=== PATIENT | female | born 1985 | race Caucasian/White ===

== ENCOUNTER 2018-05-01 14:24 | Inpatient (IN) | payer MEDICAID, OTHER ==
[~2018-05-01] VITALS: Ht 162.6 cm; Wt 118.8 kg
[2018-05-01 15:29] VITALS: BP 135/68; PULSE 18; RESP 18; Ht 162.6 cm; Wt 118.8 kg
[2018-05-01] MEDS ORDERED: TERBUTALINE 1 ML ONE (16:25)
--- NOTE | 2018-05-01 17:27 | HP ---
Date/Time of Note Date/Time of Note DATE: 05/01/18 TIME: 17:25 OB - History Hx of Present Free Text/Dictation @16 wks GA with Rupture of membrane : 2 Para: 0 Care: Good Care Obstetrical Complications: None Past Family/Social History * Past Medical, Surgical, Family and Obstetric Histories reviewed from chart. OB Admission Exam Vital Signs Vital Signs Vital Signs Date Temp Pulse Resp B/P (MAP) Pulse Ox O2 O2 Flow FiO2 Time Delivery Rate 05/01/18 97.9 18 18 135/68 Room Air 15:29 (90) Physical Exam Abdomen: WNL Cervical Dilatation: None Effacement: 0% Station: Ballotable Membranes: Ruptured OB Assessment/Plan Other Assessment: PMH Obesity PSH Denies Plan: Induction MIRTHA FREEMAN M.D. May 01, 2018 17:26
[2018-05-01] MEDS ORDERED: IBUPROFEN 600 MG TAB PO PRN (18:30)
[2018-05-01] MEDS ORDERED: LIDOCAINE 1% (MPF) 30 ML INJ INJ PRN (18:30)
[2018-05-01] MEDS ORDERED: METHYLERGONOVINE 0.2 MG INJ IM PRN (18:30)
[2018-05-01] MEDS ORDERED: OXYCODONE/ASPIRIN (4.88/325) TAB PO PRN (18:30)
[2018-05-01] MEDS ORDERED: OXYTOCIN 30 UNITS/LR 500 ML IV PRN (18:30)
[2018-05-01] MEDS ORDERED: BUTORPHANOL 2 MG INJ IV PRN (18:30)
[2018-05-01] MEDS ORDERED: MISOPROSTOL 200 MCG TAB PR PRN (18:30)
[2018-05-01] MEDS ORDERED: CARBOPROST 250 MCG INJ IM PRN (18:30)
[2018-05-01] MEDS ORDERED: OXYTOCIN 30 UNITS/LR 500 ML IV SCH ×2 (18:30)
[2018-05-01] MEDS ORDERED: MISOPROSTOL 50 MCG CAPSULE VAG ONE (18:30)
[2018-05-01] MEDS: LACTATED RINGER'S 1,000 ML IV SCH (18:32)
[2018-05-01] MEDS ORDERED: MISOPROSTOL 200 MCG TAB VAG STA (21:00)
[2018-05-02] MEDS: LACTATED RINGER'S 1,000 ML IV SCH (02:17)
[2018-05-02] MEDS: MISOPROSTOL 200 MCG TAB PO SCH ×2 (05:18→08:00)
--- NOTE | 2018-05-02 07:15 | PD.PPDC ---
SALES PROJECT COORDINATOR Discharge Instruction Condition [id number] Patient Condition: Nytgt2h Good Activity/Restrictions [id number] Activity: Jaurq0z Normal Activity May Shower [id number] Restrictions: Ctqcf5s No Sexual Activity Nothing in the Vagina No [place] No Tampons, douche Follow-up Follow-up with Physician: 2, Week/Weeks Return to clinic for [id number] VP TREASURER Instructions: Fwtmc3o Fever greater than 101 Chills Worsening abdominal pain Excessive Vaginal Bleeding [id number] OB Instructions: Bpeia3p Depression DIMAS HUSSEIN MD May 02, 2018 07:15
--- NOTE | 2018-05-02 07:22 | LDN ---
Date/Time of Note Date/Time of Note DATE: 05/02/18 TIME: 07:16 Delivery Summary after SROM at 16 weeks and only one dose of cytotec 600 mcg per vagina and delivered a non-viable, demise weighing 234 grams, 8.5" long, and with Apgars of 0/0. The placenta delivered intact about 2 hours later. Weeks of Gestation 16w 5d Placenta Delivered: Spontaneously Episiotomy: No Estimated blood loss: 691 Sponge & Needle done & correct: Yes All needle counts correct: Yes Any foreign bodies felt in the: No (vagina) Infant Delivery Information Sex Infant Sex: female Apgars 1 Minute: 0 5 Minute: 0 Suctioning Nose & mouth suctioned at guillermo: No Delee suction performed: No Umbilical Cord Cord presentations: no nuchal cord Cord Blood was obtained: No Mother & Baby Disposition Disposition Mom will be d/c'ed home after an appropriate observation time. DIMAS HUSSEIN MD May 02, 2018 07:22
[2018-05-02 07:59] VITALS: BP 111/65; PULSE 86; RESP 18
[2018-05-02] MEDS ORDERED: OXYTOCIN 30 UNITS/LR 500 ML IV SCH (08:34)
[2018-05-02] MEDS ORDERED: OXYTOCIN 30 UNITS/LR 500 ML IV PRN (09:00)
[2018-05-02] MEDS ORDERED: MISOPROSTOL 200 MCG TAB PR PRN (09:00)
[2018-05-02] MEDS ORDERED: NACL 0.9% 3 ML SYG IV SCH (09:00)
[2018-05-02] MEDS ORDERED: CARBOPROST 250 MCG INJ IM PRN (09:00)
[2018-05-02] MEDS ORDERED: SENNA/DOCUSATE NA (8.6MG/50MG) TAB PO SCH (09:00)
[2018-05-02] MEDS ORDERED: SENNA/DOCUSATE NA (8.6MG/50MG) TAB PO PRN (09:00)
[2018-05-02] MEDS ORDERED: OXYCODONE/ASPIRIN (4.88/325) TAB PO PRN (09:00)
[2018-05-02] MEDS ORDERED: METHYLERGONOVINE 0.2 MG INJ IM PRN (09:00)
[2018-05-02 11:35] VITALS: BP 109/60; PULSE 80; RESP 19
[2018-05-02] MEDS ORDERED: IBUPROFEN 600 MG TAB PO SCH (12:00)
[2018-05-04] MEDS ORDERED: DIPHTH/TET/ACEL PERTUSS (ADULT) 0.5 ML VIAL IM* ONE (09:00)
--- NOTE | 2018-05-09 11:47 | DELSUM ---
Delivery Summary A-C Datetime Report Generated by CPN: 05/09/2018 11:47 DELIVERY PERSONNEL Video Machines Mechanic: Veronica Simon MATERNAL INFORMATION Delivery Anesthesia: None Medications in Delivery: oxytocin 30 units in LR Delivery QBL (ml): 691 Placenta Cultured: No Maternal Complications: Other RN Comments: DEMISE LABOR SUMMARY EDC: 10/12/2018 00:00 No. Babies in Womb: 1 Attempted: No Labor Anesthesia: None LABOR INFORMATION Reason for Induction: Demise Onset of Labor: 05/02/2018 04:00 Cervical Ripening Agents: Cytotec @ Oxytocin: N/A Group B Beta Strep: Not Done Antibiotics # of Doses: 0 Steroids Given: None Reason Steroids Not Administered: Not Applicable MEMBRANES Membranes Rupture Method: Spontaneous Rupture of Membranes: 05/01/2018 09:00 Length of Rupture (hr): 20.07 Amniotic Fluid Color: Clear Amniotic Fluid Amount: Moderate Amniotic Fluid Odor: None STAGES OF LABOR Stage 3 hr: 1 Stage 3 min: 12 Total Time in Labor hr: 2 Total Time in Labor min: 16 VAGINAL DELIVERY Episiotomy: None Laceration Extension: N/A Laceration Type: None Laceration Repair: Not Applicable Initial Vag Sponge Count: 10 Final Vag Sponge Count: 10 Initial Vag Sharps Count: 1 Final Vag Sharps Count: 1 Sponge Count Correct: Yes Sharps Count Correct: Yes BABY A INFORMATION Delivery Date/Time: 05/02/2018 05:04 Method of Delivery: Vaginal Born in Route : No : N/A Forceps: N/A Vacuum Extraction: N/A Shoulder Dystocia : N/A SHOULDER DYSTOCIA BABY A Delivery Date/Time: 05/02/2018 05:04 PRESENTATION/POSITION BABY A Presentation: Cephalic Cephalic Presentation: Vertex Breech Presentation: N/A PLACENTA INFORMATION BABY A Placenta Delivery Time : 05/02/2018 06:16 Placenta Method of Delivery: Spontaneous Placenta Status: Delivered SCORES BABY A Heart Rate 1 min: Absent Resp Effort 1 min: Absent Reflex Irritability 1 min: No Response Muscle Tone 1 min: Flaccid Color 1 min: Blue/Pale Resuscitation Effort 1 min: N/A SCORE 1 MIN: 0 Heart Rate 5 min: Absent Resp Effort 5 min: Absent Reflex Irritability 5 min: No Response Muscle Tone 5 min: Flaccid Color 5 min: Blue/Pale Resuscitation Effort 5 min: N/A SCORE 5 MIN: 0 INFANT INFORMATION BABY A Gestational Age at Delivery: 16.5 Gestational Status: - <34 Weeks Outcome : AB < 20 Weeks Infant Condition : Critical Sex: Female IDENTIFICATION/MEDS BABY A ID Band Number: n/a Sensor Applied: N/A WEIGHT/LENGTH BABY A Infant Birthweight (gm): 234 Weight (lb): 0 Infant Weight (oz): 8 Length (in): 8.50 Infant Length (cm): 21.59 CORD INFORMATION BABY A No. Cord Vessels: 3 Nuchal Cord : N/A Cord Blood Taken: N/A Infant Suction: None
== END 2018-05-02 12:50 | disposition home or self-care (01) | DRG 807 ==
LOC: OBT 14:24 → L-D 14:28 → OBT 17:10 → L-D 17:10
PROVIDERS: ADMIT Obstetrics & Gynecology; ATTEND Obstetrics & Gynecology
PROC: 10E0XZZ Delivery of Products of Conception, External Approach (ICD-10-PCS; principal; 2018-05-02)
DX: O36.4XX0 Maternal care for intrauterine death, not applicable or unspecified (principal); Z37.1 Single stillbirth; Z3A.16 16 weeks gestation of pregnancy
CPT/HCPCS: 76815; 76856; 84112; 85025; 85610; 85730; 86592; 86703; 86850; 86900; 86901; 87340; 88307; G0463; J2590; J3105; J7120